=== PATIENT | male | born 2000 | race African-American/Black ===

== ENCOUNTER 2023-01-25 18:11 | Emergency (ER) | payer MEDICAID ==
[~2023-01-25] VITALS: Ht 172.7 cm; Wt 70.0 kg
[2023-01-25 18:12] VITALS: TEMP 98.1
[2023-01-25] MEDS ORDERED: IBUP-2029 MT (22:20)
[2023-01-25] MEDS ORDERED: LIDO700A30 TP (22:20)
[2023-01-25] MEDS ORDERED: IBUPROFEN 600MG TABLET PO ONE (22:30)
[2023-01-25] MEDS ORDERED: LIDOCAINE 5% PATCH TOP SCH (22:30)
[2023-01-25 22:32] VITALS: BP 124/62; PULSE 90; RESP 18
== END 2023-01-25 22:34 | disposition home or self-care (01) ==
LOC: ER 18:11
DX: S06.0XAA Concussion with loss of consciousness status unknown, initial encounter (principal); V49.9XXA Car occupant (driver) (passenger) injured in unspecified traffic accident, initial encounter; Y93.89 Activity, other specified; Y92.89 Other specified places as the place of occurrence of the external cause; Y99.8 Other external cause status
CPT/HCPCS: 99283